=== PATIENT | female | born 1950 | race Caucasian/White ===

== ENCOUNTER 2022-05-05 10:35 | Outpatient (CLI) | payer MEDICARE, BC | END 2022-05-05 10:36 | disposition home or self-care (01) | LOC: CSHMAMMO 10:35 | PROVIDERS: ATTEND Internal Medicine | DX: M81.0 Age-related osteoporosis without current pathological fracture (principal); M85.89 Other specified disorders of bone density and structure, multiple sites | CPT/HCPCS: 77080 ==